=== PATIENT | male | born 1980 | race Two or more races ===

== ENCOUNTER 2019-03-07 06:58 | Inpatient (IN) | payer MEDICAID ==
[~2019-03-07] VITALS: Ht 170.2 cm; Wt 89.8 kg
[2019-03-07] MEDS ORDERED: Morphine Sulfate 2mg/ml Inj(IV/IM USE ONLY) IVP ONE (07:00)
[2019-03-07] MEDS ORDERED: Omnipaque-300 100ml vial INJ PRN (07:00)
--- NOTE | 2019-03-07 07:06 | Emergency Room Report ---
History of Present Illness General Chief Complaint: Pain Source: Patient Present Illness HPI Disclaimer: Please note that this report is being documented using [employer] technology. This can lead to erroneous entry secondary to incorrect interpretation by the dictating instrument. HPI: 38-year-old male with a history of alcoholic liver cirrhosis chronic alcohol abuse presents for evaluation of abdominal pain. Patient states symptoms began last night but were initially very mild. They steadily progressed throughout the night and now are a 10/10. He reports pain in the right upper quadrant and in the right flank that does not radiate. Denies history of kidney stones, unknown about gallstones. He has a history of liver cirrhosis but states he stopped drinking 3 months ago. Denies ever having pancreatitis. He had several episodes of nonbloody emesis this morning. Denies recent diarrhea. Denies dysuria, hematuria, testicular pain, history of hernias. Denies chest pain or shortness of breath or fever. No known sick contacts. No trauma reported. He was found hypotensive by EMS with systolic pressures in the low 80s. PMH: Alcohol abuse, cirrhosis, hypertension PSH: Denies Allergies: Denies Social Hx: Alcohol abuse in remission Allergies: Coded Allergies: No Known Allergies (Unverified , 03/07/19) Nursing Documentation-PMH Past Medical History: No History, Except For Review of Systems All Other Systems: negative except mentioned in HPI Physical Exam Vital Signs Date Time Temp Pulse Resp B/P (MAP) Pulse Ox O2 Delivery O2 Flow Rate FiO2 03/07/19 06:53 98.1 55 21 74/29 (44) 97 Room Air General: Awake and alert, appears uncomfortable, writhing in pain HEENT: NC/AT. EOMI. dry mucous membranes Cardiovascular: RRR. S1 and S2 normal. No murmur appreciated, blood pressure is improving Resp: Normal work of breathing. No cough, wheezing or crackles appreciated Abdomen: Abdomen is soft, nondistended. Tender to palpation on the right upper quadrant with a positive Voss sign. There is epigastric tenderness as well. Less tenderness in the left upper quadrant of some is present. Little tenderness in the lower quadrants and no rebound or masses appreciated. Skin: Intact. No abrasions, laceration or rash over the exposed skin MSK: Normal tone and bulk. Moving all extremities. No obvious deformity. Neuro: Awake and alert. Mentating appropriately. Back/Spine: Right-sided CVA tenderness flank pain Sp02 EP Interpretation: reviewed Medical Decision Making Diagnostic Impression: Primary Impression: Anemia Additional Impressions: Thrombocytopenia Cholecystitis, acute Choledocholithiasis Cirrhosis ER Course 38-year-old male presents for evaluation of right upper quadrant abdominal pain and right-sided flank pain found to be hypotensive by EMS on arrival. Patient' s blood pressure appears to be improving and now currently at 98/38. We will start immediate IV fluid hydration and provide mild analgesia but do not want to drop his pressures any further. Differential includes but is not limited to nephrolithiasis, pyelonephritis, cholecystitis, cholangitis, cirrhosis with peritonitis, pancreatitis, bowel obstruction, UTI, gastric ulcer, perforated ulcer. EKG on arrival is nonischemic and he denies any chest pain. We will start a broad metabolic and infectious work-up and send patient for CT scan of the abdomen and pelvis. He is to be n.p.o. Laboratory Tests Test 03/07/19 07:01 03/07/19 07:12 White Blood Count 20.8 K/UL (4.8-10.8) H Red Blood Count 2.24 M/UL (4.70-6.10) L Hemoglobin 8.7 G/DL (14.2-18.0) L Hematocrit 22.9 % (42.0-52.0) L Mean Corpuscular Volume 102 FL (80-99) H Mean Corpuscular Hemoglobin 39.0 PG (27.0-31.0) H Mean Corpuscular Hemoglobin Concent 38.2 G/DL (32.0-36.0) H Red Cell Distribution Width 12.6 % (11.6-14.8) Platelet Count 77 K/UL (150-450) L Mean Platelet Volume 8.3 FL (6.5-10.1) Neutrophils (%) (Auto) % (45.0-75.0) Lymphocytes (%) (Auto) % (20.0-45.0) Monocytes (%) (Auto) % (1.0-10.0) Eosinophils (%) (Auto) % (0.0-3.0) Basophils (%) (Auto) % (0.0-2.0) Differential Total Cells Counted 100 Neutrophils % (Manual) 82 % (45-75) H Lymphocytes % (Manual) 11 % (20-45) L Monocytes % (Manual) 3 % (1-10) Eosinophils % (Manual) 2 % (0-3) Basophils % (Manual) 0 % (0-2) Band Neutrophils 2 % (0-8) Platelet Estimate Decreased L Platelet Morphology Normal Hypochromasia 2+ Anisocytosis 1+ Macrocytosis 1+ Spherocytes 2+ Sodium Level 129 MMOL/L (136-145) L Potassium Level 3.9 MMOL/L (3.5-5.1) Chloride Level 96 MMOL/L (98-107) L Carbon Dioxide Level 20 MMOL/L (21-32) L Anion Gap 13 mmol/L (5-15) Blood Urea Nitrogen 18 mg/dL (7-18) Creatinine 1.2 MG/DL (0.55-1.30) Estimate Glomerular Filtration Rate > 60 mL/min (>60) Glucose Level 105 MG/DL (74-106) Calcium Level 7.7 MG/DL (8.5-10.1) L Total Bilirubin 6.2 MG/DL (0.2-1.0) H Direct Bilirubin 4.8 MG/DL (0.0-0.3) H Aspartate Amino Transferase (AST) 93 U/L (15-37) H Alanine Aminotransferase (ALT) 49 U/L (12-78) Alkaline Phosphatase 321 U/L (46-116) H Ammonia < 10 umol/L (11-32) L Troponin I 0.011 ng/mL (0.000-0.056) Total Protein 7.5 G/DL (6.4-8.2) Albumin 2.0 G/DL (3.4-5.0) L Globulin 5.5 g/dL Albumin/Globulin Ratio 0.4 (1.0-2.7) L Lipase 383 U/L (73-393) Urine Color Yellow Urine Appearance Clear Urine pH 7 (4.5-8.0) Urine Specific [place] 1.015 (1.005-1.035) Urine Protein Negative (NEGATIVE) Urine Glucose (UA) Negative (NEGATIVE) Urine Ketones Negative (NEGATIVE) Urine Blood Negative (NEGATIVE) Urine Nitrite Negative (NEGATIVE) Urine Bilirubin Negative (NEGATIVE) Urine Urobilinogen 4 MG/DL (0.0-1.0) H Urine Leukocyte Esterase Negative (NEGATIVE) EKG Diagnostic Results EKG Time: 07:00 Rate: normal Rhythm: NSR ST Segments: no acute changes Other Impression Sinus rhythm, normal axis,, no ST segment changes. Slight prolongation of QTC interval at 517 ms. Rhythm Strip Diag. Results Rhythm Strip Time: 07:00 EP Interpretation: yes Rate: 60s Rhythm: NSR, no PVC's, no ectopy Reevaluation Time: 08:26 Last Vital Signs Date Time Temp Pulse Resp B/P (MAP) Pulse Ox O2 Delivery O2 Flow Rate FiO2 03/07/19 06:53 98.1 55 21 74/29 (44) 97 Room Air Reevaluation Impression Patient's labs and CT scan are consistent with choledocholithiasis. Ultrasound has been ordered as have preop labs. No recurrence of hypotension since IV fluid hydration has been started. Pain is now better controlled so we will continue to provide analgesia. Patient will require admission and surgical consultation. No evidence of acute cholecystitis on abdominal ultrasound of the CBD is dilated. Dr. De Paz from gastroenterology is aware and will evaluate the patient during admission. Should be admitted as a panel admission to Dr. Barros. Patient is stable for telemetry. He was given Zosyn. Vital signs remained stable Disposition: ADMITTED INPATIENT Condition: Serious Tha Green MD Mar 07, 2019 07:06
[2019-03-07 07:07] VITALS: BP_SYST 74; BP_SYST 89; BP_DIAS 24; BP_DIAS 29
--- NOTE | 2019-03-07 07:07 | NUR ---
ED Nurse Note: Patient arrived in ED via EMS from home c/o flank pain 02/01. Patient aao x 4 and ambulatory but unable to ambulate at time of assessment due to pain. Patient skin severely jaundiced. Patient placed in gown and quality assurance monitor chassis. Patient exhibiting signs of severe pain; moaning and facial grimace. No acute distress during assessment. Blood and urine samples collected by SAADIA Morris and sent to lab.
[2019-03-07] MEDS ORDERED: Ketorolac 30mg Inj IV ONE (07:15)
[2019-03-07 07:20] LABS: HEMATOCRIT 22.9 % (42.0-52.0); HEMOGLOBIN 8.7 G/DL (14.2-18.0); MEAN CORPUSCULAR VOLUME 102 FL (80-99); PLATELET COUNT 77 K/UL (150-450); RED BLOOD COUNT 2.24 M/UL (4.70-6.10); RED CELL DISTRIBUTION WIDTH 12.6 % (11.6-14.8); WHITE BLOOD COUNT 20.8 K/UL (4.8-10.8)
[2019-03-07 07:25] LABS: BILIRUBIN, URINE NEGATIVE (NEGATIVE); GLUCOSE, URINE (UA) NEGATIVE (NEGATIVE); KETONES,URINE NEGATIVE (NEGATIVE); LEUKOCYTE ESTERASE ,URINE NEGATIVE (NEGATIVE); NITRITE,URINE NEGATIVE (NEGATIVE); PH,URINE 7 (4.5-8.0); PROTEIN,URINE NEGATIVE (NEGATIVE); UROBILINOGEN,URINE 4 MG/DL (0.0-1.0)
[2019-03-07 07:34] LABS: ANION GAP 13 mmol/L (5-15); BLOOD UREA NITROGEN 18 mg/dL (7-18); CALCIUM 7.7 MG/DL (8.5-10.1); CARBON DIOXIDE 20 MMOL/L (21-32); CHLORIDE 96 MMOL/L (98-107); CREATININE 1.2 MG/DL (0.55-1.30); POTASSIUM 3.9 MMOL/L (3.5-5.1); SODIUM 129 MMOL/L (136-145)
[2019-03-07 07:37] LABS: APPEARANCE,URINE CLEAR; COLOR,URINE YELLOW
[2019-03-07 07:39] LABS: AMMONIA < 10 umol/L (11-32)
--- NOTE | 2019-03-07 07:46 | NUR ---
ED Nurse Note: neurodiagnostic technician at bedside.
[2019-03-07 07:48] LABS: ALANINE AMINOTRANSFERASE 49 U/L (12-78); ALBUMIN/GLOBULIN RATIO 0.4 (1.0-2.7); ALKALINE PHOSPHATASE 321 U/L (46-116); ASPARTATE AMINO TRANSFERASE 93 U/L (15-37); BILIRUBIN,DIRECT 4.8 MG/DL (0.0-0.3); BILIRUBIN,TOTAL 6.2 MG/DL (0.2-1.0)
--- NOTE | 2019-03-07 07:53 | NUR ---
ED Nurse Note: Patient with tech for CT scan.
--- NOTE | 2019-03-07 08:07 | NUR ---
ED Nurse Note: Patient returned from CT scan no acute distress.
[2019-03-07 08:11] VITALS: BP 103/50
--- NOTE | 2019-03-07 08:25 | NUR ---
ED Nurse Note: pt verbalized improved pain and mental status is fully oriented now. aao x4 and Rt flank pain 5/10.
--- NOTE | 2019-03-07 08:32 | NUR ---
ED Nurse Note: ERMD at bedside explaining about lab results and admitting plans.
[2019-03-07] MEDS ORDERED: Morphine Sulfate 4mg/ml Inj (IV USE ONLY) IVP ONE (08:45)
--- NOTE | 2019-03-07 08:46 | NUR ---
ED Nurse Note: US initiated at bedside.
[2019-03-07 08:57] LABS: INR 2.1 (0.9-1.1)
--- NOTE | 2019-03-07 09:16 | Diagnostic Imaging Report ---
Indication: Abdominal pain Technique: Continuous helical transaxial imaging of the abdomen and pelvis was obtained from the lung bases to the pubic symphysis during intravenous contrast administration. Coronal 2-D reformats were also obtained. Study obtained in a Siemens sensation [address] Automatic Exposure Control was utilized. Total Dose length Product (DLP): 1074.[address] Dose Index Volume (CTDIvol): 17.6 mGy Comparison: None Findings: The gallbladder is distended. There is the suggestion of multiple stones within the gallbladder lumen. Acute cholecystitis is possible. Correlate clinically. The CBD is about 8 mm at the level of the pancreatic head. No obvious intrahepatic biliary ductal dilatation appreciated. Again, there is limitation on this study due to artifacts.There is a small amount of fluid surrounding the liver. There is also trace fluid surrounding the spleen. The liver may be slightly heterogeneous but imaging is limited due to artifacts. In addition, the cecum and ascending colon extending through the transverse colon shows prominence of the wall which is suggestive of colitis. The colon in this segment described is relatively nondistended. Please correlate clinically for colitis. There is a small amount of air within the urinary bladder. Unless the patient has had recent Tavares placement or other history to account for the air, when she was soon infection. The appendix is seen and normal. There is no evidence of bowel obstruction, intra-abdominal abscess or free fluid. The kidneys appear grossly unremarkable. There is no hydronephrosis. The pancreas is grossly unremarkable. IMPRESSION: Possible colitis involving the right hemicolon with thickening of the wall within the colon which is under distended. Please correlate clinically. Distended gallbladder with multiple gallstones. Acute cholecystitis is not excluded. CBD in the upper limits of normal, not evaluated well on this examination. No obvious intrahepatic biliary ductal dilatation. Trace ascites. Air within the urinary bladder. Findings consistent with infection unless patient has had recent Tavares placement or other explanation for the air. Limited evaluation due to technical artifacts. Image quality is poor. The CT scanner at [facility] is accredited by the [employer] and the scans are performed using dose optimization techniques as appropriate to a performed exam including Automatic Exposure control.
--- NOTE | 2019-03-07 09:57 | Diagnostic Imaging Report ---
Indication: Abdominal pain. Elevated liver function tests Technique: Grayscale and duplex Doppler imaging of the abdomen performed. Comparison: None Findings: The liver is heterogeneous.. Doppler interrogation of the main portal vein shows patency with hepatopedal, monophasic flow. CBD is between 7 and 8 mm in diameter. There is no visualized intrahepatic biliary ductal dilatation. Gallbladder is distended. Sonographic Voss's is negative per technologist. There is no wall thickening. Interestingly, CT head demonstrated gallstones while the current ultrasound does not. Trace ascites noted. The spleen is borderline enlarged measuring between 12 and 13 cm. There demonstrated part of the pancreas, aorta and IVC show no definite abnormalities. Both kidneys appear unremarkable. There is no hydronephrosis. IMPRESSION: Doubt cholecystitis by our examination. Gallbladder is distended but sonographic Voss's is negative and there is no wall thickening or pericholecystic fluid. Please correlate clinically. Gallstones were demonstrated by CT. Heterogeneous liver, nonspecific. Findings could be acute or chronic. Correlate for hepatitis or other intrinsic liver disease. Mildly prominent CBD at 7 to 8 mm. Trace ascites.
[2019-03-07 10:11] VITALS: BP 109/53
[2019-03-07] MEDS ORDERED: Piperacillin/Tazobactam 3.375 GM in NS 110 ML IVPB ONE (10:30)
[2019-03-07] MEDS ORDERED: FUROSEMIDE40 MG ORAL (10:34)
[2019-03-07] MEDS ORDERED: SPIRONOLACTONE100 MG ORAL (10:35)
--- NOTE | 2019-03-07 11:25 | NUR ---
ED Nurse Note: waiting for Dr. Barros to respond to ERMD.
--- NOTE | 2019-03-07 11:50 | NUR ---
ED Nurse Note: report given to SAADIA Sagastume
--- NOTE | 2019-03-07 12:10 | NUR ---
NURSE NOTES: Received report from SAADIA Sagastume. Patient transferred from ED to tele, campus monitor on. Patient AOX4, able to ambulate from [facility] to hospital bed. Family member at the bedside, VS at the time of arrival BP 105/57, HR 61, T 97.7, on room air O2 sat 100%. Patient c/o abdominal pain radiating to back, 5/10. IV on left AC 20G, asymptomatic, patent, intact, belonging list checked, no valuables. Bed in lowest position, side rails upx2, call light within reach. Will continue to monitor.
--- NOTE | 2019-03-07 12:30 | NUR ---
NURSE NOTES: Dr. Barros at the nursing station, made aware of admission, asked for admission order. Per Dr. Barros, full code, will put order. Order noted, entered, carried out.
--- NOTE | 2019-03-07 15:13 | NUR ---
NURSE NOTES: Paged Dr. Barros regarding patient c/o 1010 right abdominal area, radiating to back. Per Dr. Barros, 2mg IVP q4h prn. Order noted, entered, carried out.
[2019-03-07] MEDS: Vancomycin 1.25gm/NS Premix q24h IVPB SCH (15:33)
[2019-03-07] MEDS: Morphine Sulfate 2mg/ml Inj(IV/IM USE ONLY) IVP PRN ×2 (16:11→20:16)
[2019-03-07] MEDS ORDERED: Phytonadione 10 mg/mL 1ml amp SUBQ SCH (19:00)
--- NOTE | 2019-03-07 19:06 | General Progress Note ---
Assessment/Plan Assessment/Plan: GI CONSULT Dictated No RUQ TTP on my exam, but is tended in costochondral areas. However, leucocytosis and other lab abnormalities concerning for acute biliary pathology Recommendations - NPO - abx - follow labs - MRCP - HIDA/CCK - vitamin K - PPI Thank you Domonique De Paz MD Subjective Allergies: Coded Allergies: No Known Allergies (Unverified , 03/07/19) Objective Last 24 Hour Vital Signs Date Time Temp Pulse Resp B/P (MAP) Pulse Ox O2 Delivery O2 Flow Rate FiO2 03/07/19 12:39 Room Air 03/07/19 12:32 64 03/07/19 12:14 98.3 62 16 109/53 100 Room Air 03/07/19 10:11 98.3 62 16 109/53 100 Room Air 03/07/19 09:09 98.3 03/07/19 08:11 67 11 103/50 100 Room Air 03/07/19 07:39 98.3 03/07/19 07:39 98.3 03/07/19 07:07 98.1 65 21 89/24 97 Room Air 03/07/19 07:07 55 21 Room Air 03/07/19 06:53 98.1 55 21 74/29 (44) 97 Room Air Laboratory Tests 03/07/19 07:01: White Blood Count 20.8H, Red Blood Count 2.24L, Hemoglobin 8.7L, Hematocrit 22.9L, Mean Corpuscular Volume 102H, Mean Corpuscular Hemoglobin 39.0H, Mean Corpuscular Hemoglobin Concent 38.2H, Red Cell Distribution Width 12.6, Platelet Count 77L, Mean Platelet Volume 8.3, Neutrophils (%) (Auto) , Lymphocytes (%) (Auto) , Monocytes (%) (Auto) , Eosinophils (%) (Auto) , Basophils (%) (Auto) , Differential Total Cells Counted 100, Neutrophils % ( Manual) 82H, Lymphocytes % (Manual) 11L, Monocytes % (Manual) 3, Eosinophils % ( Manual) 2, Basophils % (Manual) 0, Band Neutrophils 2, Platelet Estimate DecreasedL, Platelet Morphology Normal, Hypochromasia 2+, Anisocytosis 1+, Macrocytosis 1+, Spherocytes 2+, Prothrombin Time 21.8H, Prothromb Time International Ratio 2.1H, Activated Partial Thromboplast Time 45H, Sodium Level 129L, Potassium Level 3.9, Chloride Level 96L, Carbon Dioxide Level 20L, Anion Gap 13, Blood Urea Nitrogen 18, Creatinine 1.2, Estimat Glomerular Filtration Rate > 60, Glucose Level 105, Calcium Level 7.7L, Total Bilirubin 6.2H, Direct Bilirubin 4.8H, Aspartate Amino Transf (AST/SGOT) 93H, Alanine Aminotransferase (ALT/SGPT) 49, Alkaline Phosphatase 321H, Ammonia < 10L, Troponin I 0.011, Total Protein 7.5, Albumin 2.0L, Globulin 5.5, Albumin/Globulin Ratio 0.4L, Lipase 383 03/07/19 07:12: Urine Color Yellow, Urine Appearance Clear, Urine pH 7, Urine Specific [place] 1.015, Urine Protein Negative, Urine Glucose (UA) Negative, Urine Ketones Negative, Urine Blood Negative, Urine Nitrite Negative, Urine Bilirubin Negative , Urine Urobilinogen 4H, Urine Leukocyte Esterase Negative Height (Feet): 5 Height (Inches): 7.00 Weight (Pounds): 200 Domonique De Paz MD Mar 07, 2019 19:06
--- NOTE | 2019-03-07 19:36 | NUR ---
HAND-OFF: Report given to SAADIA Kay.
--- NOTE | 2019-03-07 19:40 | NUR ---
NURSE NOTES: Received patient from Roldan ZEE. Patient in bed, on room air, no s/s respiratory distress. Bed in low position, locked, call light within reach. Left AC 20 gauge intact, patent, with NS infusing at 125ml/hr. No s/s of infiltration. Reminded patient and at bedside that patient is NPO for test tomorrow. Patient verbalized understanding.
[2019-03-07 20:00] VITALS: BP 101/51
[2019-03-07] MEDS: Piperacillin/Tazobactam 3.375 GM in NS 110 ML IVPB SCH (20:03)
--- NOTE | 2019-03-07 22:26 | NUR ---
NURSE NOTES: Patient verbalized that he felt a lot better.
[2019-03-08] VITALS (7 sets, daily range): BP systolic 96–114; BP diastolic 54–59
--- NOTE | 2019-03-08 00:30 | History and Physical Report ---
DATE OF ADMISSION: 03/07/2019 REASON FOR ADMISSION: Abdominal pain, leukocytosis, and probable biliary sepsis. HISTORY OF PRESENT ILLNESS: This is a 38-year-old male who has a history of alcoholic liver disease, but has not had any alcohol for two months. He states that last night he developed some abdominal discomfort that progressed throughout the night and severity reached 10/10. The pain was in the right upper quadrant and flank area with some radiation to the back. He had some chills. No fevers. He had some nonbloody emesis, normal bowel movements, however. He has no prior history of pancreatitis, but does have a known history of alcoholic cirrhosis. On arrival to the emergency room, the patient was hypotensive with a blood pressure of 74/29 and responded to IV fluid challenge. PAST MEDICAL HISTORY: As noted above includes alcoholism, cirrhosis, and hypertension. ALLERGIES: None. MEDICATIONS: Prior to admission, none. SOCIAL HISTORY: No smoking or substance abuse. Alcohol abuse as noted, in remission since 2 to 3 months. REVIEW OF SYSTEMS: Otherwise unremarkable. PHYSICAL EXAMINATION: GENERAL: Awake and alert, presently in mild distress due to abdominal pain. VITAL SIGNS: Blood pressure 109/53, pulse 62, respirations 16. Afebrile. HEENT: Conjunctivae pink. Sclerae are anicteric. Oropharynx clear. NECK: Supple. Jugular venous pressure normal. LUNGS: Clear. CARDIAC: Regular rhythm and rate. Normal S1, S2. No murmur. ABDOMEN: Soft, but tender in the right upper and mid epigastric regions predominantly. No guarding. No rebound. No Voss sign. EXTREMITIES: No clubbing, cyanosis, or edema. NEUROLOGIC: Nonfocal. LABORATORY DATA: White count 20.8, hemoglobin 8.7, MCV 102. INR is 2.1. Urinalysis, no active sediment. Sodium 129, potassium 3.9, chloride 96, bicarb 20, BUN 18, and creatinine 1.2. Total bilirubin 6.2, AST and ALT 93/49, alkaline phosphatase 321. Troponin 0.011. Albumin 2.0. IMPRESSION: 1. Biliary sepsis. 2. Hypovolemia with shock. 3. Possible cholangitis. 4. Macrocytic anemia. 5. Alcoholism. 6. Alcoholic liver disease with cirrhosis. 7. Coagulopathy. 8. Hyponatremia. 9. Metabolic acidosis. 10. Severe hypoalbuminemia. PLAN: 1. Panculture. 2. Empiric broad spectrum antibiotics for hepatobiliary pathogens. 3. Volume resuscitation with saline. 4. Monitor electrolytes and replace accordingly. 5. Metabolic profile including B12, folate levels. 6. No anticoagulants due to baseline coagulopathy. 7. Vitamin K supplements added. 8. GI consult requested. 9. He will likely need MRCP and HIDA scanning. Tom Barros M.D. DR: MALKA JOB#: [id number] CC:
--- NOTE | 2019-03-08 01:46 | Consultation ---
DATE OF CONSULTATION: 03/07/2019 CHIEF COMPLAINT: I was asked to see this patient by Dr. Tom Barros for evaluation of abdominal pain. HISTORY OF PRESENT ILLNESS: The patient is a pleasant 38-year-old man, who was brought into the hospital due to a one-day history of what was briefed to me as right upper quadrant abdominal pain. On my questioning, however, the patient points to his right chest and complains of pain in the rib area. The patient states that even before morphine was given, the patient was actually not tender in right upper quadrant abdomen area. He states it hurts with palpation of his ribs. He has not had this problem before. He since then had one bout of vomiting. There is no diarrhea. He has had extensive history of past alcohol use, although he has stopped drinking alcohol about 3 months ago when he presented to outside hospital with complications of his liver disease. He was discharged with Lasix and Aldactone which he takes daily. He does recall having swollen legs. PAST MEDICAL HISTORY: History of alcohol abuse, cirrhosis. PAST SURGICAL HISTORY: None. ALLERGIES: None. FAMILY HISTORY: Noncontributory. SOCIAL HISTORY: The patient is . He has three children. 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 He stopped drinking about three months ago. REVIEW OF SYSTEMS: Otherwise negative. MEDICATIONS: Lasix 40 mg daily, Aldactone 100 mg daily. PHYSICAL EXAMINATION: GENERAL: Pleasant man, seen in his room with at bedside. HEENT: Normocephalic and atraumatic. Sclerae were anicteric. Oropharynx clear. NECK: Supple. CHEST: Revealed coarse breath sounds. Chest wall did appear to be tender to palpation in the right costochondral area. CARDIOVASCULAR: Revealed a regular rate. ABDOMEN: Soft with no tenderness in the abdomen, but the liver did seem to be enlarged. However, there is no right upper quadrant tenderness and there is no Voss sign. EXTREMITIES: Revealed no edema. LABORATORY AND DIAGNOSTIC DATA: CT scan and ultrasound were noted. ASSESSMENT: This patient presents with pain in the chest area, and on my examination and evaluation it is not in the right upper quadrant. However, he does have elevated white count, which is of concern for some type of infectious process. Gallstones in the gallbladder are suspected which could cause gallbladder disease, but once again there is no Voss sign either on my examination or the ultrasound examination. Laboratory parameters which are abnormal could likewise be explained by the long-term cirrhotic disease; however, one thing that is hard to explain is the leukocytosis, therefore I do agree with the antibiotic therapy for now until the matter is further clarified. I will order MRCP examination to rule out the common bile duct stones which can contribute to perhaps cholangitis. I will also order a HIDA scan with [facility]CK . RECOMMENDATIONS: 1. Keep the patient NPO. 2. I agree with proton pump inhibitor. 3. HIDA scan and MRCP tomorrow. 4. Broad-spectrum antibiotics. 5. Vitamin K and follow INR. 6. Follow laboratory parameters and exam carefully. Thank you for asking me to participate in the care of this patient. Domonique De Paz M.D. DR: Carmen JOB#: [id number] CC: MICAH
[2019-03-08] MEDS: Vancomycin 1.25gm/NS Premix q24h IVPB SCH ×2 (02:00→15:23)
[2019-03-08] MEDS: Piperacillin/Tazobactam 3.375 GM in NS 110 ML IVPB SCH ×3 (03:38→20:34)
[2019-03-08 06:46] LABS: HEMATOCRIT 23.7 % (42.0-52.0); HEMOGLOBIN 8.6 G/DL (14.2-18.0); MEAN CORPUSCULAR VOLUME 106 FL (80-99); PLATELET COUNT 68 K/UL (150-450); RED BLOOD COUNT 2.24 M/UL (4.70-6.10); RED CELL DISTRIBUTION WIDTH 13.5 % (11.6-14.8); WHITE BLOOD COUNT 6.8 K/UL (4.8-10.8)
[2019-03-08 06:51] LABS: INR 2.2 (0.9-1.1)
[2019-03-08] MEDS ORDERED: Omnipaque-300 100ml vial INJ PRN (07:00)
[2019-03-08 07:09] LABS: ALANINE AMINOTRANSFERASE 54 U/L (12-78); ALBUMIN 1.7 G/DL (3.4-5.0); ALKALINE PHOSPHATASE 194 U/L (46-116); ANION GAP 5 mmol/L (5-15); ASPARTATE AMINO TRANSFERASE 94 U/L (15-37); BILIRUBIN,DIRECT 4.8 MG/DL (0.0-0.3); BILIRUBIN,TOTAL 9.2 MG/DL (0.2-1.0); BLOOD UREA NITROGEN 17 mg/dL (7-18); CALCIUM 7.7 MG/DL (8.5-10.1); CARBON DIOXIDE 24 MMOL/L (21-32); CHLORIDE 104 MMOL/L (98-107); CREATININE 0.8 MG/DL (0.55-1.30); POTASSIUM 4.2 MMOL/L (3.5-5.1); SODIUM 133 MMOL/L (136-145)
--- NOTE | 2019-03-08 07:10 | NUR ---
NURSE NOTES: Received report from Rahul ZEE. Pt in bed AOX4 and able to make needs known. On NPO. IV in LAC 20G running with NS@125ml/hr patent and asymptomatic. No acute distress noted. No signs of bleeding noted. Side rails x2 up for saFETY. Bed in lowest position and locked. Call light within easy reach. Will continue to quiñonez of care.
--- NOTE | 2019-03-08 07:18 | NUR ---
HAND-OFF: Report given to Min RN. Patient NPO, plan of care endorsed.
--- NOTE | 2019-03-08 08:35 | NUR ---
NURSE NOTES: The patient went to MRI room for MRCP via [facility].
[2019-03-08] MEDS ORDERED: Pantoprazole Inj IVP SCH (09:00)
--- NOTE | 2019-03-08 10:59 | NUR ---
CASE MANAGEMENT:REVIEW 38YR OLD MALE BIBA FROM HOME CC: RT FLANK PAIN X3 DAYS. HYPOTENSION SI: ACUTE CHOLECYSTITIS. ANEMIA. CIRRHOSIS 98.0 55 21 74/29 97% ON RA WBC+20.8 H/H-8.7/22.9 NA-129 IS: 250CC NS BOLUS GIVEN EN ROUTE 1L NS BOLUS X2 IV ZOFRAN IV MORPHINE X2 IV TORADOL : TO TELEMETRY INTERQUAL CRITERIA MET
--- NOTE | 2019-03-08 12:09 | Diagnostic Imaging Report ---
Indication: Abdominal pain. Jaundice. Technique: MRI of the abdomen was performed in a 1.5 Babs magnet. Pulse sequences obtained include coronal and axial T2 single shot fast spin echo breathhold and respiratory gated coronal T2 3-D M.R.C.P.; this data set was displayed in different projections or MIPs. In addition, multiple coronal oblique thin T2 weighted, fat saturated SE sequences obtained through the CBD. Comparison: CT abdomen pelvis and ultrasound 03/07/2019 Findings: The biliary ducts are mildly prominent but there are no definite filling defects within the CBD stent to suggest choledocholithiasis. CBD is between 8 and 12 mm in diameter. The gallbladder is distended. There is a differential density within the gallbladder with fluid fluid level. Small stones noted within the dependent part of the gallbladder. The study is limited by motion which is quite severe. There is a small amount of ascites present. There is a tiny cyst in the lateral segment of the left lobe of the liver measuring about 7 mm. IMPRESSION: No evidence of choledocholithiasis. Mildly prominent biliary ducts noted. Gallstones/sludge Mild ascites Liver cyst Significantly limited study due to motion
--- NOTE | 2019-03-08 12:39 | NUR ---
NM Hepatobiliary (HIDA) scan with ejection fraction complete.
--- NOTE | 2019-03-08 12:40 | NUR ---
NURSE NOTES: Returned back from Radiology dept.
--- NOTE | 2019-03-08 12:55 | NUR ---
NURSE NOTES: Clear liquid diet ordered by Dr. Romero and tele box reapplied.
--- NOTE | 2019-03-08 14:07 | Diagnostic Imaging Report ---
Indication: Abdominal Pain. Abnormal liver function tests Technique: 6.3 mCi of technetium 99 m-Choletec was injected intravenously. Planar imaging of the abdomen was then performed every 5 minutes up to 30 minutes and every 10 minutes up to one hour. Oblique views were also obtained. At 60 minutes postinjection, patient consumed fatty meal containing 10 g total fat. Gallbladder ejection fraction wasn't calculated during the subsequent 60 minute dynamic acquisition. Findings: There is prompt uptake within the liver with good washout of radiotracer from the liver on subsequent imaging. There is excretion into the biliary ducts. Gallbladder activity is present in a timely fashion indicating patency of the cystic duct. Bowel activity is demonstrated in a timely fashion indicating patency of the common bile duct. Gallbladder ejection fraction is estimated at 9%, which is low (normal >35%). Impression: Abnormal low gallbladder ejection fraction at 9%.
[2019-03-08] MEDS: Morphine Sulfate 2mg/ml Inj(IV/IM USE ONLY) IVP PRN (18:35)
--- NOTE | 2019-03-08 19:20 | NUR ---
NURSE NOTES: Received report from Aldair RN,pt. received in bed awake, A/O x's4- able to make needs known. No signs or symptoms of acute cardiac or respiratory distress noted, bed alarm on, side rails up x's2 and safety brakes engaged, call light within easy reach. pt. appears to be resting comfortably watching television- no distress noted. pt. is able to make needs known. pt. has Lt. AC 20g NS running at 100cc/hr- IV Intact and patent. safety measures continued, will continue with plan of care.
--- NOTE | 2019-03-08 19:29 | NUR ---
HAND-OFF: Report given to Elisa ZEE. Pt remains stable.
--- NOTE | 2019-03-08 21:15 | Progress Note ---
DATE: 03/08/2019 CARDIOLOGY PROGRESS NOTE SUBJECTIVE: The patient is tolerating a liquid diet. He continues to have abdominal and back pain, but is significantly decreased. PHYSICAL EXAMINATION: VITAL SIGNS: Blood pressure 109/54, heart rate 68, respirations 18, afebrile. LUNGS: Clear. CARDIAC: Regular. Normal S1, S2 with no murmur, rub, or gallop. ABDOMEN: Soft. There is no distention. Mild right upper quadrant tenderness. EXTREMITIES: No edema. LABORATORY AND DIAGNOSTIC DATA: White count 6.8, hemoglobin 8.6. B12, folate levels normal. TSH normal. Ammonia negative. Albumin 1.7. Potassium 4.2, BUN 17, creatinine 0.8, sodium 133. Alkaline phosphatase 194. HIDA scan revealed a low ejection fraction and no signs of obstruction. MRCP revealed no choledocholithiasis, prominent biliary duct, gallstones, and sludge with mild ascites. IMPRESSION: 1. Alcoholic liver disease. 2. Probable choledocholithiasis with spontaneously passed stone. 3. Sepsis, recovering. 4. Macrocytic anemia. 5. Coagulopathy. 6. Hyponatremia, improved. PLAN: 1. Antimicrobials. 2. Monitor hepatic function. 3. GI follow up. 4. IV fluid hydration. 5. Vitamin K supplement. Tom Barros M.D. DR: KIRILL JOB#: [id number] CC:
--- NOTE | 2019-03-08 22:20 | NUR ---
HAND-OFF: Report given to SAADIA Vega,pt.transferred to 4E- to room 419-1- pt. remains stable and no signs of distress noted- orders transferred.
--- NOTE | 2019-03-08 22:24 | General Progress Note ---
Assessment/Plan Assessment/Plan: Assessment - Advanced EtOH liver disease - cholelithiasis - possible biliary dyskinesia - resolved leukocytosis - resolving pain Recommendations - clears / advance - abx - follow labs - PPI Subjective Allergies: Coded Allergies: No Known Allergies (Unverified , 03/07/19) Subjective Seen in radiology pain improved WBC now normal had HIDA - reduced GB ejection fraction had MRCP - (+) cholelithiasis, (-) choledocholithiasis Objective Last 24 Hour Vital Signs Date Time Temp Pulse Resp B/P (MAP) Pulse Ox O2 Delivery O2 Flow Rate FiO2 03/08/19 20:00 Room Air 03/08/19 20:00 98.0 69 18 103/59 (74) 98 03/08/19 19:27 68 03/08/19 16:00 76 03/08/19 16:00 98.3 68 18 109/54 (72) 95 03/08/19 12:40 98.0 60 18 114/58 (76) 100 03/08/19 09:00 Room Air 03/08/19 08:00 74 03/08/19 08:00 97.7 69 18 106/57 (73) 100 03/08/19 04:00 65 03/08/19 04:00 98.2 68 18 102/54 (70) 100 03/08/19 00:00 70 03/08/19 00:00 97.8 69 19 96/59 (71) 98 Intake and Output 03/07/19 03/08/19 19:00 07:00 Intake Total 2110 ml 1990 ml Balance 2110 ml 1990 ml Intake Oral 0 ml IV Total 2110 ml 1990 ml # Voids 1 2 Laboratory Tests 03/08/19 05:35: White Blood Count 6.8#, Red Blood Count 2.24L, Hemoglobin 8.6L, Hematocrit 23.7L , Mean Corpuscular Volume 106H, Mean Corpuscular Hemoglobin 38.2H, Mean Corpuscular Hemoglobin Concent 36.0, Red Cell Distribution Width 13.5, Platelet Count 68L, Mean Platelet Volume 7.8, Neutrophils (%) (Auto) , Lymphocytes (%) ( Auto) , Monocytes (%) (Auto) , Eosinophils (%) (Auto) , Basophils (%) (Auto) , Differential Total Cells Counted 100, Neutrophils % (Manual) 84H, Lymphocytes % (Manual) 10L, Monocytes % (Manual) 3, Eosinophils % (Manual) 3, Basophils % ( Manual) 0, Band Neutrophils 0, Platelet Estimate DecreasedL, Platelet Morphology Normal, Prothrombin Time 22.1H, Prothromb Time International Ratio 2.2H, Sodium Level 133L, Potassium Level 4.2, Chloride Level 104, Carbon Dioxide Level 24, Anion Gap 5, Blood Urea Nitrogen 17, Creatinine 0.8, Estimat Glomerular Filtration Rate > 60, Glucose Level 82, Lactic Acid Level 1.40, Calcium Level 7.7L, Total Bilirubin 9.2H, Direct Bilirubin 4.8H, Aspartate Amino Transf (AST/SGOT) 94H, Alanine Aminotransferase (ALT/SGPT) 54, Alkaline Phosphatase 194H, Ammonia < 10L, Total Protein 6.7, Albumin 1.7L, Vitamin B12 Level > 2000H, Folate 17.4, Thyroid Stimulating Hormone (TSH) 1.076, Hepatitis A IgM Antibody [Pending], Hepatitis B Surface Antigen [Pending], Hepatitis B Core IgM Antibody [Pending], Hepatitis C Antibody [Pending] Height (Feet): 5 Height (Inches): 7.00 Weight (Pounds): 198 Objective WDWN NAD under nuc med machine Domonique De Paz MD Mar 08, 2019 22:24
--- NOTE | 2019-03-08 22:30 | NUR ---
NURSE NOTES: Pt in bed AOX4 and able to make needs known. On clear liquid diet.. IV in LAC 20G running with NS@100ml/hr patent and asymptomatic. No acute distress noted. No signs of bleeding noted. Side rails x2 up for safety. Bed in lowest position and locked. Call light within easy reach. Will continue to plan of care. Belongings checked and verified at bedside.
[2019-03-09] VITALS: BP 115/65
[2019-03-09] MEDS: Morphine Sulfate 2mg/ml Inj(IV/IM USE ONLY) IVP PRN ×3 (02:00→21:06)
[2019-03-09 02:42] LABS: ALANINE AMINOTRANSFERASE 53 U/L (12-78); ALBUMIN 1.7 G/DL (3.4-5.0); ALKALINE PHOSPHATASE 153 U/L (46-116); ANION GAP 7 mmol/L (5-15); ASPARTATE AMINO TRANSFERASE 84 U/L (15-37); BILIRUBIN,DIRECT 5.3 MG/DL (0.0-0.3); BILIRUBIN,TOTAL 9.9 MG/DL (0.2-1.0); BLOOD UREA NITROGEN 10 mg/dL (7-18); CALCIUM 7.6 MG/DL (8.5-10.1); CARBON DIOXIDE 24 MMOL/L (21-32); CHLORIDE 104 MMOL/L (98-107); CREATININE 0.8 MG/DL (0.55-1.30); POTASSIUM 4.1 MMOL/L (3.5-5.1); SODIUM 135 MMOL/L (136-145)
[2019-03-09] MEDS ORDERED: Vancomycin 1.25gm/NS Premix 275 ML IVPB SCH (03:00)
[2019-03-09 04:00] VITALS: BP 103/58
[2019-03-09] MEDS: Piperacillin/Tazobactam 3.375 GM in NS 110 ML IVPB SCH ×3 (04:00→20:55)
[2019-03-09 04:02] LABS: HEMOGLOBIN 8.2 G/DL (14.2-18.0); MEAN CORPUSCULAR VOLUME 106 FL (80-99); PLATELET COUNT 66 K/UL (150-450); RED BLOOD COUNT 2.08 M/UL (4.70-6.10); WHITE BLOOD COUNT 5.4 K/UL (4.8-10.8)
--- NOTE | 2019-03-09 04:20 | NUR ---
NURSE NOTES: Vanco trough level came back slightly elevated at 12.8, will temporarily hold vanco to see if pharmacy wants to change dose- currently at 1.25 g.
--- NOTE | 2019-03-09 04:25 | NUR ---
NURSE NOTES: Received notification that vanco 1.25 g was cancelled, will check and administer the new vanco dose as ordered
--- NOTE | 2019-03-09 04:27 | NUR ---
NURSE NOTES: Received notification that vanco dose is now higher. will call to clarify as trough was already high- new order vanco 1.5.
[2019-03-09] MEDS ORDERED: Vancomycin 1.5gm vial IVPB ONE (06:46)
[2019-03-09] MEDS: Vancomycin 1.5gm/NS Premix IVPB SCH ×2 (07:03→17:44)
[2019-03-09 08:00] VITALS: BP 103/63
[2019-03-09] MEDS: Pantoprazole Inj IVP SCH (08:59)
[2019-03-09 12:00] VITALS: BP 102/55
--- NOTE | 2019-03-09 15:48 | Cardiology Report ---
APPROVED REPORT EKG Measurement Heart [id number] Normal sinus rhythm Prolonged QT Abnormal ECG
[2019-03-09 16:00] VITALS: BP 108/81
--- NOTE | 2019-03-09 16:19 | NUR ---
CASE MANAGEMENT:REVIEW 03/09/19 SI: ACUTE CHOLECYSTITIS. ANEMIA. CIRRHOSIS 97.7 70 20 102/55 100% ON RA H/H-8.2/22.0 PLT-66 CA-7.6 IS: IV PROTONIX QD IV VANCOMYCIN Q12 IV ZOSYN Q8HRS IVF@100/HR IV MORPHINE Q4HRS PRN : MED/SURG STATUS 4 EAST DCP: FROM HOME
--- NOTE | 2019-03-09 19:21 | NUR ---
HAND-OFF: Report given to SAADIA Conner.
--- NOTE | 2019-03-09 19:50 | NUR ---
NURSE NOTES: Received report from SAADIA Santos. Patient is in bed, awake and alert x4. On room air with no signs of distress or SOB. IV intact and running NS at 100 ml/hr. Bed locked and in lowest position. Call light in reach. Will continue to monitor the patient.
[2019-03-09 20:00] VITALS: BP 102/61
--- NOTE | 2019-03-09 23:38 | General Progress Note ---
Assessment/Plan Assessment/Plan: Assessment - Advanced EtOH liver disease - cholelithiasis - possible biliary dyskinesia - resolved leukocytosis - rib / chest wall pain Recommendations - advance to regular diet - follow labs - PPI - d/c planning per PMD Subjective Allergies: Coded Allergies: No Known Allergies (Unverified , 03/07/19) Subjective Feels OK tolerating clears no abd pain still with chest wall tenderness Objective Last 24 Hour Vital Signs Date Time Temp Pulse Resp B/P (MAP) Pulse Ox O2 Delivery O2 Flow Rate FiO2 03/09/19 20:10 Room Air 03/09/19 20:00 97.9 65 17 102/61 (75) 100 03/09/19 16:00 98.2 67 20 108/81 (90) 100 03/09/19 12:00 97.7 70 20 102/55 (71) 100 03/09/19 09:00 Room Air 03/09/19 08:00 97.9 70 16 103/63 (76) 99 03/09/19 04:00 97.7 67 20 103/58 (73) 98 03/09/19 00:00 97.5 64 18 115/65 (82) 100 Intake and Output 03/08/19 03/09/19 19:00 07:00 Intake Total 1306.666 ml 227.5 ml Balance 1306.666 ml 227.5 ml IV Total 1306.666 ml 227.5 ml # Voids 3 3 Laboratory Tests 03/09/19 02:00: White Blood Count 5.4, Red Blood Count 2.08L, Hemoglobin 8.2L, Hematocrit 22.0L , Mean Corpuscular Volume 106H, Mean Corpuscular Hemoglobin 39.3H, Mean Corpuscular Hemoglobin Concent 37.3H, Red Cell Distribution Width 13.0, Platelet Count 66L, Mean Platelet Volume 8.4, Neutrophils (%) (Auto) , Lymphocytes (%) (Auto) , Monocytes (%) (Auto) , Eosinophils (%) (Auto) , Basophils (%) (Auto) , Sodium Level 135L, Potassium Level 4.1, Chloride Level 104, Carbon Dioxide Level 24, Anion Gap 7, Blood Urea Nitrogen 10, Creatinine 0.8, Estimat Glomerular Filtration Rate > 60, Glucose Level 80, Calcium Level 7.6L, Total Bilirubin 9.9H, Direct Bilirubin 5.3H, Aspartate Amino Transf (AST/ SGOT) 84H, Alanine Aminotransferase (ALT/SGPT) 53, Alkaline Phosphatase 153H, Total Protein 6.9, Albumin 1.7L, Vancomycin Level Trough 12.8H Height (Feet): 5 Height (Inches): 7.00 Weight (Pounds): 198 Objective WDWN NAD NCAT supple CTA RRR Abd soft NT ND no edema non focal Domonique De Paz MD Mar 09, 2019 23:38
[2019-03-10] VITALS: BP 105/62
--- NOTE | 2019-03-10 00:30 | Progress Note ---
DATE: 03/09/2019 INTERNAL MEDICINE PROGRESS NOTE SUBJECTIVE: The patient has less abdominal pain. He is tolerating a liquid diet. No fevers or chills. MRCP revealed no choledocholithiasis. He remains on antimicrobials. OBJECTIVE: VITAL SIGNS: Blood pressure 102/61, pulse 65, respirations 17, and afebrile. LUNGS: Clear. CARDIAC: Regular. Normal S1, S2. ABDOMEN: Soft. EXTREMITIES: No edema. LABORATORY DATA: White count 5.4, hemoglobin 8.2. Albumin 1.7. Chemistry panel now within normal limits. IMPRESSION: 1. Cholelithiasis. No signs of choledocholithiasis. 2. Alcoholic liver disease. 3. Probable passed stone. 4. Chronic anemia. PLAN: 1. Advance diet. 2. Empiric antimicrobials. 3. Proton pump inhibitor. 4. GI followup. Tom Barros M.D. DR: CAROLYNE JOB#: [id number] CC:
[2019-03-10] MEDS: Piperacillin/Tazobactam 3.375 GM in NS 110 ML IVPB SCH (03:08)
[2019-03-10 04:00] VITALS: BP 105/64
[2019-03-10] MEDS: Morphine Sulfate 2mg/ml Inj(IV/IM USE ONLY) IVP PRN ×2 (05:55→13:27)
[2019-03-10] MEDS ORDERED: Vancomycin 1.5gm/NS Premix IVPB SCH (06:30)
--- NOTE | 2019-03-10 07:29 | NUR ---
NURSE NOTES: Unable to infuse 0630 Zosyn due to previous antibiotic still infusing. Endorsed to AM nurse.
--- NOTE | 2019-03-10 07:30 | NUR ---
HAND-OFF: Report given to SAADIA Santos.
--- NOTE | 2019-03-10 07:50 | NUR ---
NURSE NOTES: Received patient on bed, awake. IV site intact and patent. Bed in low and locked position,c all light in reach. Patient denies shortness of breath and has pain level of 2/10 does not want medication as yet. Room board updated, will continue to monitor.
[2019-03-10 08:00] VITALS: BP 115/61
[2019-03-10 08:02] LABS: HEMATOCRIT 23.9 % (42.0-52.0); HEMOGLOBIN 8.7 G/DL (14.2-18.0); MEAN CORPUSCULAR VOLUME 106 FL (80-99); PLATELET COUNT 76 K/UL (150-450); RED BLOOD COUNT 2.26 M/UL (4.70-6.10); WHITE BLOOD COUNT 4.6 K/UL (4.8-10.8)
[2019-03-10] MEDS: Pantoprazole Inj IVP SCH (08:48)
[2019-03-10 09:11] LABS: % IRON SATURATION 98 % (15-50); IRON 167 ug/dL (50-175); TOTAL IRON BINDING CAPACITY 171 ug/dL (250-450)
[2019-03-10] MEDS ORDERED: Piperacillin/Tazobactam 3.375 GM in NS 110 ML IVPB SCH (11:00)
[2019-03-10 12:00] VITALS: BP 113/60
[2019-03-10 16:00] VITALS: BP 133/76
--- NOTE | 2019-03-10 16:17 | NUR ---
CASE MANAGEMENT: REVIEW SI: CHOLELITHIASIS . ANEMIA . CIRRHOSIS T 97.3 HR 70 RR 20 BP 113/60 SAT 99% ROOM AIR WBC 4.6 H/H 8.7/23.9 IS: PROTONIX IV QD VANCOMYCIN IV Q12 ZOSYN IV Q8HRS IVF@100/HR MORPHINE IV Q4HRS PRN ADVANCE DIET FROM CLD TO REG w/1:1 FEED ASSIST FOR ASP MED/SURG STATUS DCP: PATIENT IS FROM HOME
--- NOTE | 2019-03-10 16:39 | Diagnostic Imaging Report ---
EXAM: XR Chest, 2 Views CLINICAL HISTORY: CP TECHNIQUE: Frontal and lateral views of the chest. COMPARISON: No relevant prior studies available. FINDINGS: Lungs: Mild vascular congestion. No consolidation. Pleural space: Small bilateral pleural effusions. There is also some fissural fluid. No pneumothorax. Heart: Unremarkable. No cardiomegaly. Mediastinum: Unremarkable. Bones joints: Unremarkable. IMPRESSION: Small pleural effusions and mild vascular congestion.
--- NOTE | 2019-03-10 16:40 | NUR ---
NURSE NOTES: Rechecked patient temperature at it is 98.1. No medication given. Confirmed temperature reading.
--- NOTE | 2019-03-10 16:46 | NUR ---
NURSE NOTES: Message was left for MD Barros in regards to chest xray for patient. Left message and awaiting any new orders. Charge nurse Yi made aware.
[2019-03-10] MEDS ORDERED: Furosemide 40mg tab ORAL SCH (17:00)
--- NOTE | 2019-03-10 18:24 | General Progress Note ---
Assessment/Plan Assessment/Plan: Assessment - Advanced EtOH liver disease - cholelithiasis - possible biliary dyskinesia - resolved leukocytosis - rib / chest wall pain Recommendations - advance to regular diet - follow labs - PPI - OK for d/c from GI standpoint Subjective Allergies: Coded Allergies: No Known Allergies (Unverified , 03/07/19) Subjective Feels OK tolerating solids no abd pain still with chest wall tenderness, but better Objective Last 24 Hour Vital Signs Date Time Temp Pulse Resp B/P (MAP) Pulse Ox O2 Delivery O2 Flow Rate FiO2 03/10/19 16:41 98.1 03/10/19 16:00 101.8 69 20 133/76 (95) 93 03/10/19 12:00 97.3 70 20 113/60 (77) 100 03/10/19 09:00 Room Air 03/10/19 08:00 98.2 74 16 115/61 (79) 98 03/10/19 04:00 98.2 74 19 105/64 (78) 100 03/10/19 00:00 98.1 67 18 105/62 (76) 99 03/09/19 20:10 Room Air 03/09/19 20:00 97.9 65 17 102/61 (75) 100 Intake and Output 03/09/19 03/10/19 19:00 07:00 Intake Total 2322.5 ml Balance 2322.5 ml Intake Oral 1400 ml IV Total 922.5 ml # Voids 5 2 Laboratory Tests 03/10/19 07:30: White Blood Count 4.6L, Red Blood Count 2.26L, Hemoglobin 8.7L, Hematocrit 23.9L , Mean Corpuscular Volume 106H, Mean Corpuscular Hemoglobin 38.4H, Mean Corpuscular Hemoglobin Concent 36.4H, Red Cell Distribution Width 13.0, Platelet Count 76L, Mean Platelet Volume 7.2, Neutrophils (%) (Auto) , Lymphocytes (%) (Auto) , Monocytes (%) (Auto) , Eosinophils (%) (Auto) , Basophils (%) (Auto) , Differential Total Cells Counted 100, Neutrophils % ( Manual) 64, Lymphocytes % (Manual) 28, Monocytes % (Manual) 6, Eosinophils % ( Manual) 1, Basophils % (Manual) 1, Band Neutrophils 0, Platelet Estimate DecreasedL, Platelet Morphology Normal, Macrocytosis 1+, Sodium Level 136, Potassium Level 4.0, Chloride Level 102, Carbon Dioxide Level 25, Anion Gap 9, Blood Urea Nitrogen 9, Creatinine 0.9, Estimat Glomerular Filtration Rate > 60, Glucose Level 126H, Calcium Level 8.2L, Iron Level 167, Total Iron Binding Capacity 171L, Percent Iron Saturation 98H, Unsaturated Iron Binding 4L, Total Bilirubin 12.4H, Direct Bilirubin 6.1H, Aspartate Amino Transf (AST/SGOT) 79H, Alanine Aminotransferase (ALT/SGPT) 53, Alkaline Phosphatase 127H, Total Protein 7.2, Albumin 1.8L, Lipase 256 Height (Feet): 5 Height (Inches): 7.00 Weight (Pounds): 198 Objective WDWN NAD NCAT supple CTA RRR Abd soft NT ND no edema non focal Domonique De Paz MD Mar 10, 2019 18:24
--- NOTE | 2019-03-10 18:30 | NUR ---
NURSE NOTES: Left another message for MD Barros, in regards to completing discharge information such as medications, prescriptions and discharge location. Charge nurse made aware. Awaiting any new orders.
--- NOTE | 2019-03-10 18:37 | NUR ---
NURSE NOTES: MD Barros called back and stated to let patient go home. He stated patient did not have medications nor prescriptions. Discharge delayed due to incomplete orders. Charge nurse made aware.
--- NOTE | 2019-03-10 18:59 | NUR ---
NURSE NOTES: Patient discharged. IV removed and site covered. ID band removed and disposed of. Personal belongings inventoried and sent with patient. Patient needs met and patient kept comfortable at all times. Patient departed with friends in personal vehicle.
--- NOTE | 2019-03-11 13:39 | Discharge Summary ---
Discharge Summary Discharge Summary _ DATE OF ADMISSION: 03/07/2019 DATE OF DISCHARGE: 03/10/2019 DISCHARGED BY: Dr. Barros REASON FOR ADMISSION: 38 years old male with past medical history of alcoholic liver disease , developed abdominal discomfort that progressed over the night , reaching pain level 10 out of 10 on a scale 1-10. Pain was reported to be in the right upper quadrant and flank area with some radiation to the back. Patient reported chills , but no fevers. He had nonbloody emesis but normal bowel movement. No prior history of pancreatitis. Patient denied using alcohol for the last 2 months. Upon arrival to the emergency department patient was severely hypotensive with blood pressure 74/29, but blood rpessure but responded to fluid resuscitation. Laboratory work-up revealed leukocytosis with WBC 20.8, hemoglobin 8.7 , hematocrit 22.9, platelet count 77. MCV 102 INR 2.1. Sodium 129 , potassium 3.9. BUN 18, creatinine 1.2. Total bili 6.2, direct bili 4.8. AST 93, ALT 49. Ammonia level less than 10. Troponin 0.011. Albumin 2.0 . Urinalysis revealed +4 urobilinogen , no evidence of UTI. CT of the abdomen pelvis revealed possible colitis , involving the right hemicolon with thickening of the wall within the colon which was underdistended. Distended gallbladder with multiple gallstones. Acute cholecystitis was not excluded. CBD in the upper limits of normal, not evaluated well on this examination. No obvious intrahepatic biliary ductal dilatation. Trace ascites. Abdominal ultrasound revealed mildly prominent common bile duct at 7 to 8 mm. Trace ascites. Doubt cholecystitis. Gallbladder distended , but sonographic Voss was negative. No wall thickening or pericholecystic fluid collection. Heterogeneous liver, nonspecific findings could be acute or chronic. In the emergency department patient pancultured , started on fluid resuscitation and empiric antibiotics and admitted for further management. CONSULTANTS: GI specialist Dr. De Paz [facility] COURSE: Patient admitted to medical surgical floor. Patient was continued on empiric antibiotic. Volume resuscitation with saline provided. Renal parameters and electrolytes were closely monitored, electrolytes further corrected as needed. GI specialist closely followed . Abdominal MRI revealed no evidence of choledocholithiasis. Mildly prominent. Gallstone sludge. Mild ascites. HIDA scan revealed patent cystic duct with abnormal low gallbladder ejection fraction of 9%. Leukocytosis resolved. No fevers. LFT were closely monitored. Hepatitis panel was negative. Total and direct bilirubin remained elevated. AST with small trend down, and ALT remained stable. Hyponatremia resolved ; prior to discharge sodium 136. Hemoglobin and hematocrit were closely monitored with goal to keep hemoglobin above 7. Hemoglobin hematocrit remained at baseline ; prior to discharge hemoglobin 8.7 , hematocrit 23.9. Vitamin K provided one time Platelet count was monitored and remained at the baseline without trend down; prior to discharge platelet count 76. Renal parameters remained stable. GI prophylaxis provided. Pain management was addressed. Patient was counseled to continue abstinence from alcohol. Diet was slowly advanced as per GI specialist. Antiemetic were on board as needed. Patient was able to tolerate diet. Patient clinically stabilized and was ready for discharge home. FINAL DIAGNOSES: Initial hypovolemia with shock-resolved Cholelithiasis/no evidence of choledocholithiasis Probably passed stone Possible biliary dyskinesia Advanced alcoholic liver disease with cirrhosis ETOH abuse Chronic macrocytic anemia Coagulopathy, likely due to liver disease Hyponatremia-resolved Leukocytosis - resolved Metabolic acidosis Severe hypoalbuminemia Thrombocytopenia , likely due to liver disease DISCHARGE MEDICATIONS: List of medication was sent with patient DISCHARGE INSTRUCTIONS: Patient was discharged home. Patient was counseled to continue abstinence from alcohol. Follow-up with a primary care provider in 1 week. I have been assigned to dictate discharge summary for this account. I was not involved in the patient's management. Beba Freed NP Mar 11, 2019 13:39
--- NOTE | 2019-03-14 21:05 | Coder Physician Query ---
Clarification is required for compliance, coding accuracy, and to reflect severity of illness for this patient. Dear Dr. Barros Date: 03/14/19 Bill Hiker: ALISON Weinberg REASON FOR ADMISSION: Abdominal pain, leukocytosis, and probable biliary sepsis. Discharge summary: Leukocytosis resolved. No fevers. Progress note: Sepsis, recovering. Labs: WBC 03/07 20.8, 03/08 6.8, 1115 5.4, 03/10 4.6 A possible diagnosis of_SEPSIS was made in the medical record on H &P, progress note 03/08/19. Upon review, it is difficult to determine whether this diagnosis has been ruled in, ruled out,or is still being worked up. Please indicate below the status of the aforementioned diagnosis. [] Treated and resolve [x] Presumed and treated [] Currently under treatment [] Still being worked-up [] Ruled out Present on Admission: [x] Yes [] No [] Clinically Undetermined Tom Barros M.D. Date & Time Please also document in your Progress Notes and/or Discharge Summary and indicate if the condition was present on admission. MTDD
== END 2019-03-10 19:00 | disposition home or self-care (01) | DRG 720 ==
LOC: EDBD 06:58 → EMR 07:14 → 2E 08:39 → EDBEDREQ 11:44 → 4E 03-08 22:23
DX: A41.89 Other specified sepsis (principal); R57.1 Hypovolemic shock; K83.09 Other cholangitis; K80.00 Calculus of gallbladder with acute cholecystitis without obstruction; E87.1 Hypo-osmolality and hyponatremia; K70.30 Alcoholic cirrhosis of liver without ascites; E87.2 Acidosis; K82.8 Other specified diseases of gallbladder; R07.89 Other chest pain; F10.20 Alcohol dependence, uncomplicated; I10 Essential (primary) hypertension; D53.9 Nutritional anemia, unspecified; E88.09 Other disorders of plasma-protein metabolism, not elsewhere classified
CPT/HCPCS: 36415; 71046; 74177; 74181; 76700; 78266; 80048; 80053; 80076; 80202; 81003; 82140; 82248; 82607; 82746; 83540; 83550; 83605; 83690; 84443; 84484; 85007; 85025; 85610; 85730; 86705; 86709; 86803; 86850; 86900; 86901; 87340; 93005; 96361; 96365; 96375; 96376; 99285; J2405; J7030